=== PATIENT | female | born 1995 | race Caucasian/White ===

== ENCOUNTER 2019-06-10 08:37 | Inpatient (IN) ==
[2019-06-10] MEDS ORDERED: Azithromycin 500 MG in 0.9 % Sodium Chloride 250 ML IVPB ONE (10:21)
[2019-06-10] MEDS ORDERED: Ondansetron 4 MG/2 ML VIAL IVP PRN (10:21)
[2019-06-10] MEDS ORDERED: Lidocaine 1% 20 ML MDV INFILT PRN (10:21)
[2019-06-10] MEDS ORDERED: Metoclopramide 10 MG/2 ML VIAL IVP PRN (10:21)
[2019-06-10] MEDS ORDERED: miSOPROStoL 25 MCG TABLET VG PRN (10:21)
[2019-06-10] MEDS ORDERED: Famotidine 20 MG/2 ML VIAL IVP PRN (10:21)
[2019-06-10] MEDS ORDERED: Naloxone 0.4 MG/ML INJ IVP PRN (10:21)
[2019-06-10] MEDS ORDERED: Ringers Solution, Lactated 1,000 ML IVC SCH (10:30)
[2019-06-10] MEDS ORDERED: Oxytocin 20 units/ LR 1000 mL 20 UNIT/1,000 ML BAG IVC SCH (10:30)
[2019-06-10 11:09] LABS: Basophils % 0.3 %; Eosinophils # 0.1 K/mcL (0.0-0.6); Eosinophils % 0.6 %; Hematocrit 42.1 % (35.3-44.9); Hemoglobin 14.8 g/dL (11.5-15.4); Immature Granulocytes % 0.5 % (0-4); Lymphocytes % 17.2 %; Mean Corpuscular HGB Conc 35.2 g/dL (31.6-35.5); Mean Corpuscular Hemoglobin 31.2 pg (28.0-33.3); Mean Corpuscular Volume 88.6 fL (83.0-100.0); Mean Platelet Volume 12.1 fL (9.4-12.4); Monocytes # 0.9 K/mcL (0.0-1.3); Monocytes % 7.4 %; Neutrophils # 8.6 K/mcL (1.6-8.9); Platelet Count 203 K/mcL (140-400); Red Blood Count 4.75 M/mcL (3.82-4.97); Red Cell Distribution Width 12.4 % (11.5-14.5); White Blood Count 11.7 K/mcL (4.3-11.1)
[2019-06-10] MEDS ORDERED: Epidural Premix (fent/bupiv) 110 ML EP SCH (11:15)
[2019-06-10] MEDS ORDERED: EPHEDrine 50 MG/ML VIAL IVP PRN (11:15)
[2019-06-10 11:23] LABS: Amphetamine Screen,Urine Negative ng/mL (Cutoff=1000); Barbiturate Screen,Urine Negative ng/mL (Cutoff=200); Benzodiazepines Screen,Urine Negative ng/mL (Cutoff=200); Cannabinoid Screen,Urine Negative ng/mL (Cutoff = 50); Cocaine Screen,Urine Negative ng/mL (Cutoff= 300); Opiate Screen,Urine Negative ng/mL (Cutoff=300); Phencyclidine Screen,Urine Negative ng/mL (Cutoff=25)
[2019-06-11] MEDS ORDERED: Oxytocin 20 units/ LR 1000 mL 20 UNIT/1,000 ML BAG IVC SCH (03:07)
[2019-06-11] MEDS ORDERED: Rho Immune Globulin 1,500 UNIT SYRINGE IM PRN (03:07)
[2019-06-11] MEDS: Ibuprofen 600 MG TABLET PO SCH ×4 (04:10→21:15)
[2019-06-11] MEDS: Prenatal Vit/FA 1 EACH TABLET PO SCH (07:45)
[2019-06-11] MEDS: Acetaminophen 325 MG TABLET PO SCH ×2 (07:46→16:52)
[2019-06-12] MEDS: Acetaminophen 325 MG TABLET PO SCH (07:26)
[2019-06-12] MEDS: Prenatal Vit/FA 1 EACH TABLET PO SCH (07:26)
[2019-06-12] MEDS: Ibuprofen 600 MG TABLET PO SCH (07:27)
[2019-06-12 07:49] VITALS: BP 122/78
== END 2019-06-12 10:26 | disposition home or self-care (01) | DRG 807 ==
LOC: 1NENULAB → OBSVTOIN 08:37 → 1NENUOBS 06-11 06:17
PROVIDERS: ADMIT Obstetrics & Gynecology; ATTEND Obstetrics & Gynecology